=== PATIENT | male | born 1975 | race Caucasian/White ===

== ENCOUNTER → 2024-01-24 | Outpatient (REF) | payer OTHER, SELFPAY | LOC: DHSLP | PROVIDERS: ATTENDING PHYSICIAN Family Medicine | DX: R06.83 Snoring (principal) | CPT/HCPCS: 95800 ==

== ENCOUNTER → 2024-02-14 06:27 | Day surgery (SDC) | payer OTHER, SELFPAY | LOC: GI 06:27 | PROVIDERS: ATTENDING PHYSICIAN Internal Medicine | DX: Z12.11 Encounter for screening for malignant neoplasm of colon (principal); K63.5 Polyp of colon; K64.8 Other hemorrhoids | CPT/HCPCS: 45380; 88305 ==